=== PATIENT | female | born 1945 | race Caucasian/White ===

== ENCOUNTER 2023-08-24 14:52 | Inpatient (IN) | payer MEDICARE, BC ==
[~2023-08-24] VITALS: Ht 152.4 cm; Wt 66.3 kg
[2023-08-24] MEDS ORDERED: TRIA60LO7 TOP (15:01)
[2023-08-24] MEDS ORDERED: QUET50TA PO (15:01)
[2023-08-24] MEDS ORDERED: POTA10CA43 PO (15:01)
[2023-08-24] MEDS ORDERED: ONDA4TAB11 PO (15:01)
[2023-08-24 15:50] LABS: BASOPHILS % (AUTO) 0.7 % (0.0-2.0); CALCIUM 9.1 mg/dL (8.5-10.1); CARBON DIOXIDE 28 mmol/L (21-32); CHLORIDE 105 mmol/L (98-107); CREATININE 0.7 mg/dL (0.6-1.3); DIFFERENTIAL COMMENT 1; EOSINOPHILS # (AUTO) 0.2 K/uL (0.0-0.7); EOSINOPHILS % (AUTO) 2.3 % (0.0-7.0); GLUCOSE 95 mg/dL (74-106); HEMATOCRIT 40.9 % (31.2-41.9); HEMOGLOBIN 14.2 g/dL (10.9-14.3); LYMPHOCYTES # (AUTO) 1.8 K/uL (0.8-4.8); LYMPHOCYTES % (AUTO) 26.3 % (20.5-51.5); MEAN CORPUSCULAR HEMOGLOBIN 29.9 uug (24.7-32.8); MEAN CORPUSCULAR HGB CONC 35 g/dL (32.3-35.6); MONOCYTES # (AUTO) 0.7 K/uL (0.1-1.30); MONOCYTES % (AUTO) 9.9 % (0.0-11.0); NEUTROPHILS # (AUTO) 4.3 K/uL (1.8-8.9); NEUTROPHILS % (AUTO) 60.8 % (38.5-71.5); PLATELET COUNT (AUTO) 184 K/uL (179-408); POTASSIUM 4.3 mmol/L (3.5-5.1); RED BLOOD CELL COUNT(AUTO) 4.76 MIL/uL (3.63-4.92); RED CELL DISTRIBUTION WIDTH 12.6 % (12.3-17.7); SODIUM SERUM 139 mmol/L (136-145); UREA NITROGEN, BLOOD 16 mg/dL (7-18)
[2023-08-24 15:56] LABS: ALANINE AMINOTRANSFERASE 26 U/L (14-59); ALKALINE PHOSPHATASE 84 U/L (50-136); ASPARTATE AMINOTRANSFERASE 13 U/L (15-37); BILIRUBIN,DIRECT 0.1 mg/dL (0.0-0.2); BILIRUBIN,TOTAL 0.6 mg/dL (0.2-1.0); ETHANOL < 3 MG/DL (0-10); TOTAL PROTEIN, SERUM 7.1 g/dL (6.4-8.2)
[2023-08-24 16:03] LABS: THYROID STIMULATING HORMONE 2.412 mIU/mL (0.358-3.740)
[2023-08-24 16:04] LABS: *BILIRUBIN,URIN NEGATIVE (NEGATIVE); *BLOOD, URINE NEGATIVE (NEGATIVE); *CLARITY,URINE CLEAR (CLEAR); *COLOR,URINE YELLOW (YELLOW); *KETONES,URINE NEGATIVE (NEGATIVE); *PROTEIN,URINE NEGATIVE (NEGATIVE); LEUKOCYTE ESTERASE ,URINE NEGATIVE (NEGATIVE); NITRITE, URINE NEGATIVE (NEGATIVE); UGLUCOSE NEGATIVE (NEGATIVE)
[2023-08-24 16:13] LABS: ALBUMIN 3.4 g/dL (3.4-5.0)
[2023-08-24 16:19] LABS: *AMPHETAMINE, URINE NEGATIVE (NEGATIVE); *BARBITURATE, URINE NEGATIVE (NEGATIVE); *BENZODIAZEPINE, URINE NEGATIVE (NEGATIVE); *CANNABINOID, URINE NEGATIVE (NEGATIVE); *COCCAINE, URINE NEGATIVE (NEGATIVE); *OPIATE, URINE NEGATIVE (NEGATIVE); *PHENCYCLIDINE SCREEN,URINE NEGATIVE (NEGATIVE); FENTANYL, URINE NEGATIVE (NEGATIVE)
[2023-08-24 16:29] LABS: BACTERIA,URINE FEW /HPF (NONE SEEN); RBC,URINE NONE SEEN /HPF (0-3); SQUAMOUS EPITHELIAL CELL,UR FEW /HPF (NONE SEEN); URINE AMORPHOUS URATE MODERATE /HPF; WBC,URINE 0-3 /HPF (0-3)
[2023-08-24 22:00] VITALS: BP 121/53; TEMP 97.7; O2SAT 97
[2023-08-24] MEDS ORDERED: LORAZEPAM 2 MG/1 ML VIAL IV PRN (23:30)
[2023-08-25] MEDS: QUETIAPINE FUMARATE 25 MG TABLET PO PRN (00:33)
[2023-08-25] MEDS: ACETAMINOPHEN 325 MG TABLET PO PRN (04:54)
[2023-08-25 06:00] VITALS: BP 117/48; TEMP 97.4; O2SAT 95
[2023-08-25] MEDS ORDERED: QUET25TA36 PO (11:44)
[2023-08-25] MEDS ORDERED: ACET325T53 PO (11:44)
== END 2023-08-25 16:25 | DRG 884 ==
LOC: ER 14:52 → MEDSURG3 17:16
PROVIDERS: ADMIT Internal Medicine; ATTEND Internal Medicine
DX: R45.1 Restlessness and agitation (principal); D68.59 Other primary thrombophilia; F03.93 Unspecified dementia, unspecified severity, with mood disturbance; R41.0 Disorientation, unspecified; F22 Delusional disorders; E66.9 Obesity, unspecified; F17.210 Nicotine dependence, cigarettes, uncomplicated; F32.A Depression, unspecified; M19.90 Unspecified osteoarthritis, unspecified site; Z68.28 Body mass index [BMI] 28.0-28.9, adult; Z90.49 Acquired absence of other specified parts of digestive tract
CPT/HCPCS: 36415; 70450; 71045; 83605; 84443; 85025; 93005; A4606; A4663; G0378; G0480

== ENCOUNTER 2023-08-25 17:07 | Inpatient (IN) | payer MEDICARE, BC ==
[~2023-08-25] VITALS: Ht 152.4 cm; Wt 65.8 kg
[~2023-08-25 17:07] MED LIST: ACET325T53 PO; ONDA4TAB11 PO; POTA10CA43 PO; QUET25TA36 PO; QUET50TA PO; TRIA60LO7 TOP
[2023-08-25] MEDS: BLOOD SUGAR DIAGNOSTIC 1 EACH STRIP VI ONE (17:30)
[2023-08-25] MEDS ORDERED: TEMAZEPAM 7.5 MG CAPSULE PO PRN (17:30)
[2023-08-25 18:19] VITALS: BP 134/84; TEMP 97.8; O2SAT 97
[2023-08-25 20:00] VITALS: BP 126/61; TEMP 97.8; O2SAT 98
[2023-08-25] MEDS: CLONAZEPAM 0.5 MG TABLET PO PRN (20:58)
[2023-08-26 08:14] VITALS: BP 121/58; TEMP 97.7; O2SAT 98
[2023-08-26 16:28] VITALS: BP 102/59; TEMP 97.9; O2SAT 98
[2023-08-26] MEDS: DIVALPROEX SPRINKLE 125 MG CAP.SPRINK PO SCH (18:14)
[2023-08-26] MEDS: OLANZAPINE ZYDIS 5 MG TAB.RAPDIS PO SCH (20:24)
[2023-08-26 22:35] VITALS: BP 105/52; TEMP 97.5; O2SAT 95
[2023-08-27 09:10] VITALS: BP 112/56; TEMP 98.2; O2SAT 96
[2023-08-27] MEDS: MULTIVITAMINS,THERAPEUTIC TABLET PO SCH (09:20)
[2023-08-27] MEDS ORDERED: FURO20TA4 PO (09:29)
[2023-08-27] MEDS ORDERED: IBUP-1955 PO (09:30)
[2023-08-27 16:51] VITALS: BP 102/55; TEMP 98.1; O2SAT 96
[2023-08-27 19:59] VITALS: BP 105/55; TEMP 98.1; O2SAT 95
[2023-08-28 08:32] VITALS: BP 116/71; TEMP 98.1; O2SAT 98
[2023-08-28] MEDS: FUROSEMIDE 20 MG TABLET PO SCH (08:46)
[2023-08-28] MEDS: POTASSIUM CHLORIDE 10 MEQ TAB.PRT.SR PO SCH (08:46)
[2023-08-28 16:27] VITALS: BP 98/72; TEMP 98; O2SAT 97
[2023-08-28 19:44] VITALS: BP 105/54; TEMP 98.1; O2SAT 96
[2023-08-28] MEDS: ACETAMINOPHEN 325 MG TABLET PO PRN (20:19)
[2023-08-29 08:04] VITALS: BP 98/51; TEMP 98; O2SAT 96
[2023-08-29] MEDS: REMEDY ESSENTIAL ZINC PASTE 113 GM TOP SCH (08:56)
[2023-08-29 15:35] VITALS: BP 97/42; TEMP 98; O2SAT 96
[2023-08-29 19:43] VITALS: BP 101/56; TEMP 98.1; O2SAT 95
[2023-08-30 07:30] VITALS: BP 110/64; TEMP 97.6; O2SAT 100
[2023-08-30 16:57] VITALS: BP 106/47; TEMP 97.8; O2SAT 96
[2023-08-30 20:00] VITALS: BP 107/70; TEMP 97.8; O2SAT 96
[2023-08-30] MEDS: DIVALPROEX SPRINKLE 125 MG CAP.SPRINK PO SCH ×2 (20:00→20:58)
[2023-08-31 08:03] VITALS: BP 146/78; TEMP 97.8; O2SAT 96
[2023-08-31 09:09] LABS: CALCIUM 8.6 mg/dL (8.5-10.1); CREATININE 0.7 mg/dL (0.6-1.3); POTASSIUM 4.2 mmol/L (3.5-5.1)
[2023-08-31 15:15] VITALS: BP 124/48; TEMP 98.2; O2SAT 96
[2023-08-31 20:00] VITALS: BP 103/75; TEMP 97.3; O2SAT 95
[2023-09-01 07:52] VITALS: BP 119/56; TEMP 98; O2SAT 98
[2023-09-01 16:04] VITALS: BP 113/60; TEMP 98; O2SAT 98
[2023-09-01 20:00] VITALS: BP 93/53; TEMP 98.3; O2SAT 96
[2023-09-01 20:25] VITALS: BP 117/62; O2SAT 96
[2023-09-02 08:10] VITALS: BP 96/48; TEMP 97.7; O2SAT 96
[2023-09-02 16:37] VITALS: BP 101/46; TEMP 98; O2SAT 96
[2023-09-02 20:00] VITALS: BP 118/56; TEMP 98.3; O2SAT 95
[2023-09-02] MEDS: DIVALPROEX 250 MG TABLET.DR PO SCH (20:25)
[2023-09-03 08:35] VITALS: BP 95/49; TEMP 97.8; O2SAT 97
[2023-09-03] MEDS: DIVALPROEX 250 MG TABLET.DR PO SCH (12:09)
[2023-09-03 16:48] VITALS: BP 109/70; TEMP 97.9; O2SAT 97
[2023-09-03 19:50] VITALS: BP 105/51; TEMP 98; O2SAT 100
[2023-09-04 08:34] VITALS: BP 96/49; TEMP 98.1; O2SAT 97
[2023-09-04 16:04] VITALS: BP 103/71; TEMP 98; O2SAT 97
[2023-09-04 19:53] VITALS: BP 101/58; TEMP 98.1; O2SAT 95
[2023-09-05 08:01] VITALS: BP 119/57; TEMP 98.4; O2SAT 98
[2023-09-05] MEDS: FUROSEMIDE 20 MG TABLET PO SCH (08:52)
[2023-09-05] MEDS: OLANZAPINE 2.5 MG TABLET PO SCH (08:53)
[2023-09-05] MEDS ORDERED: OLANZAPINE 5 MG TABLET PO SCH (09:00)
[2023-09-05 15:17] VITALS: BP 122/69; TEMP 98; O2SAT 98
[2023-09-05 22:51] VITALS: BP 91/60; TEMP 98; O2SAT 98
[2023-09-06 09:17] VITALS: BP 157/74; TEMP 97.9; O2SAT 97
[2023-09-06 20:00] VITALS: BP 116/65; TEMP 97.8; O2SAT 95
[2023-09-07 08:06] VITALS: BP 123/53; TEMP 98.2; O2SAT 98
[2023-09-07 15:25] VITALS: BP 104/48; TEMP 98; O2SAT 99
[2023-09-07 20:00] VITALS: BP 101/44; TEMP 97.7; O2SAT 94
[2023-09-08 08:02] VITALS: BP 94/48; TEMP 98; O2SAT 98
[2023-09-08 15:31] VITALS: BP 135/46; TEMP 98; O2SAT 100
== END 2023-09-08 16:00 | DRG 885 ==
LOC: GPS 17:07
PROVIDERS: ADMIT Psychiatry & Neurology Psychiatry; ATTEND Internal Medicine
DX: F29 Unspecified psychosis not due to a substance or known physiological condition (principal); G93.41 Metabolic encephalopathy; F03.93 Unspecified dementia, unspecified severity, with mood disturbance; F03.92 Unspecified dementia, unspecified severity, with psychotic disturbance; D68.59 Other primary thrombophilia; I10 Essential (primary) hypertension; M15.9 Polyosteoarthritis, unspecified; E66.9 Obesity, unspecified; Z68.28 Body mass index [BMI] 28.0-28.9, adult; Z74.09 Other reduced mobility; Z90.49 Acquired absence of other specified parts of digestive tract; Z87.891 Personal history of nicotine dependence; Z79.899 Other long term (current) drug therapy
CPT/HCPCS: 36415; 80164; J3490